=== PATIENT | female | born 1970 | race African-American/Black ===

== ENCOUNTER 2017-11-24 01:30 | Emergency (ER) | payer MEDICAID, OTHER ==
[~2017-11-24] VITALS: Ht 165.1 cm; Wt 132.9 kg
[2017-11-24] MEDS ORDERED: CARVEDILOL3.125 MG ORAL (01:54)
[2017-11-24] MEDS ORDERED: FUROSEMIDE20 M1 ORAL (01:54)
[2017-11-24] MEDS ORDERED: SPIRONOLACTONE25 MG ORAL (01:54)
[2017-11-24] MEDS ORDERED: FOLIC ACID1 MG ORAL (01:54)
[2017-11-24] MEDS ORDERED: DIGOXIN0.125 MG/2 ORAL (01:55)
[2017-11-24 02:00] VITALS: BP 160/79
[2017-11-24] MEDS ORDERED: ROBAXIN-750750 MG PO (03:41)
[2017-11-24] MEDS ORDERED: IBUPROFEN600 MG ORAL (03:41)
[2017-11-24 03:45] VITALS: BP 152/80
--- NOTE | 2017-11-24 03:51 | Emergency Room Report ---
History of Present Illness General Chief Complaint: Multiple Trauma/Fall Source: Patient Present Illness HPI 46YOF with low back pain and right ankle pain after accidental slip and fall on back in store yesterday. Denies hitting head, LOC, nausea/vomiting, blurry vision Has sharp pain to right ankle when walking Taking tylenol once with some improvement Denies lower leg weakness, incontinence Denies previous trauma to back, legs Allergies: Coded Allergies: AMOXICILLIN (Verified Allergy, Unknown, SWELLING, 01/06/09) Patient History Past Medical History: none Past Surgical History: none Pertinent Family History: none Last Menstrual Period: Nov Now: No Immunizations: UTD Reviewed Nursing Documentation: PMH: Agreed, PSxH: Agreed Nursing Documentation-PMH Past Medical History: No Stated History Hx Cardiac Problems: Yes - CHF Review of Systems All Other Systems: negative except mentioned in HPI Physical Exam Vital Signs Date Time Temp Pulse Resp B/P (MAP) Pulse Ox O2 Delivery O2 Flow Rate FiO2 11/24/17 01:43 97.9 80 16 160/79 98 Room Air Medical Decision Making Diagnostic Impression: Primary Impression: Back pain Qualified Codes: M54.5 - Low back pain Additional Impressions: Fall Qualified Codes: W19.XXXA - Unspecified fall, initial encounter Right ankle sprain Qualified Codes: S93.401A - Sprain of unspecified ligament of right ankle, initial encounter ER Course Xrays of right ankle and LS spine negative for acute fracture Advised RICE, Motrin/Robaxin Supportive tx PMD followup as needed ER course: Patient has remained stable during ED stay. Disposition: Patient is to be discharged to home. Prescriptions given are motrin, robaxin Patient is instructed to follow up with their primary care doctor within 5 days. Strict return precautions discussed with patient such as fever, chills, worsening/severe pain, nausea, vomiting, which may indicate severe illness. Patient verbalizes understanding and agrees with plan. Please note that this Emergency Department Report was dictated using [employer] greaser technology software, occasionally this can lead to erroneous entry secondary to interpretation by the dictation equipment Other X-Ray Diagnostic Results Other X-Ray Diagnostic Results #1: X-Ray ordered: Right ankle # of Views/Limited Vs Complete: 4 View Indication: Pain EP Interpretation: Yes Interpretation: no dislocation, no soft tissue swelling, no fractures Impression: No acute disease Electronically Signed by: Dr Eleazar Zamora MD Other X-Ray Diagnostic Results #2: X-Ray ordered: LS Spine limited # of Views/Limited Vs Complete: 3 View Indication: Pain EP Interpretation: Yes Interpretation: no dislocation, no soft tissue swelling, no fractures Impression: No acute disease Electronically Signed by: Dr Eleazar Zamora MD Last Vital Signs Date Time Temp Pulse Resp B/P (MAP) Pulse Ox O2 Delivery O2 Flow Rate FiO2 11/24/17 02:00 97.9 80 16 160/79 98 Room Air Status: improved Disposition: HOME, SELF-CARE Condition: Improved Scripts Methocarbamol* (ROBAXIN-750*) 750 Mg Tablet 750 MG PO TID for 7 Days, #30 TAB 0 Refills Prov: ELEAZAR ZAMORA M.D. 11/24/17 Ibuprofen* (MOTRIN*) 600 Mg Tablet 600 MG ORAL THREE TIMES A DAY for For Pain for 7 Days, #30 TAB 0 Refills Prov: ELEAZAR ZAMORA M.D. 11/24/17 Patient Instructions: Fall Prevention in the Home, [id number], Musculoskeletal Pain ELEAZAR ZAMORA M.D. Nov 24, 2017 03:51
[2017-11-24 03:53] VITALS: BP 152/80
--- NOTE | 2017-11-24 12:50 | Diagnostic Imaging Report ---
Indication: Pain Technique: 3 views of the right ankle Comparison: none Findings: There is soft tissue swelling over the lateral malleolus. No acute fractures. No dislocations. There are plantar and calcaneal spurs Impression: Lateral soft tissue swelling No acute bony trauma This agrees with the preliminary interpretation provided by the emergency room physician
--- NOTE | 2017-11-24 12:51 | Diagnostic Imaging Report ---
Indication: Pain Technique: 3 views of the lumbar spine Comparison: None Findings: Bony alignment is normal. Vertebral body heights are preserved. There is minimal degenerative disc narrowing and proliferative spondylosis at T11-12. The remainder of the spaces are preserved. The included extra spinal soft tissues are unremarkable Impression: No acute bony trauma Minimal lower thoracic degenerative change, as described This agrees with the preliminary interpretation provided by the emergency room physician
== END 2017-11-24 03:53 | disposition home or self-care (01) ==
LOC: EMR 02:13
DX: S93.401A Sprain of unspecified ligament of right ankle, initial encounter (principal); M54.5 Low back pain; W01.0XXA Fall on same level from slipping, tripping and stumbling without subsequent striking against object, initial encounter; Y92.89 Other specified places as the place of occurrence of the external cause; M47.814 Spondylosis without myelopathy or radiculopathy, thoracic region; Z88.0 Allergy status to penicillin
CPT/HCPCS: 72020; 99284

== ENCOUNTER 2018-03-01 22:31 | Emergency (ER) | payer OTHER ==
[~2018-03-01] VITALS: Ht 165.1 cm; Wt 129.7 kg
[~2018-03-01 22:31] MED LIST: CARVEDILOL3.125 MG ORAL; DIGOXIN0.125 MG/2 ORAL; FOLIC ACID1 MG ORAL; FUROSEMIDE20 M1 ORAL; IBUPROFEN600 MG ORAL; ROBAXIN-750750 MG PO; SPIRONOLACTONE25 MG ORAL
[2018-03-01 23:20] VITALS: BP 151/84
[2018-03-01] MEDS ORDERED: MECLIZINE HCL25 MG ORAL (23:22)
[2018-03-01] MEDS ORDERED: ZYRTEC10 MG ORAL (23:22)
[2018-03-01 23:40] VITALS: BP 0/0
--- NOTE | 2018-03-02 02:41 | Emergency Room Report ---
History of Present Illness General Chief Complaint: Dizziness Source: Patient Present Illness HPI Patient present with complaints of acute dizziness She feels that she might have an infection in the right ear However denies any pain Patient reports that earlier as she had tilted her head upwards she had acute dizziness Denies any focal weakness denies any chest pain or shortness of breath denies any back or flank pain Denies any fall or trauma Allergies: Coded Allergies: AMOXICILLIN (Verified Allergy, Unknown, SWELLING, 01/06/09) PENICILLINS (Verified Allergy, Unknown, 03/01/18) Patient History Past Medical History: see triage record Pertinent Family History: none Last Menstrual Period: 01/2018 Now: No Reviewed Nursing Documentation: PMH: Agreed; PSxH: Agreed Nursing Documentation-PMH Past Medical History: No History, Except For Hx Cardiac Problems: Yes - CHF Hx Hypertension: Yes Review of Systems All Other Systems: negative except mentioned in HPI Physical Exam Vital Signs Date Time Temp Pulse Resp B/P (MAP) Pulse Ox O2 Delivery O2 Flow Rate FiO2 03/01/18 23:02 98.2 77 16 151/84 97 Room Air 98.2 Sp02 EP Interpretation: reviewed, normal General Appearance: well appearing, no apparent distress Head: normocephalic, atraumatic Eyes: bilateral eye PERRL, bilateral eye EOMI ENT: hearing grossly normal, normal pharynx, uvula midline, other - Bulging in the right TM, no obvious erythema Neck: full range of motion, supple, no meningismus, no bony tend Respiratory: lungs clear, normal breath sounds, no rhonchi, no respiratory distress, no retraction, no accessory muscle use Cardiovascular #1: normal peripheral pulses, regular rate, rhythm, no edema, no gallop, no JVD, no murmur Gastrointestinal: normal bowel sounds, non tender, soft, no mass, no organomegaly, non-distended, no guarding, no hernia, no pulsatile mass, no rebound Genitourinary: no CVA tenderness Musculoskeletal: normal inspection Neurologic: oriented x3, responsive, 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 nml as tested, motor strength/ tone normal, sensory intact Psychiatric: mood/affect normal Skin: warm/dry, palpation normal, pallor Lymphatic: normal inspection, no adenopathy Medical Decision Making Diagnostic Impression: Primary Impression: Dizziness ER Course Patient appears mildly pale She does not feel that her skin color is different than usual Patient has also had anemia in the past Patient reports that she just had a full set of blood work performed by her primary physician she is also supposed to be on iron pills however reports that they make her constipated given the fluid behind the right ear Likely contributing to her dizziness episodes Patient is treated for that however requires close follow-up for further evaluation of her hemoglobin and further care Last Vital Signs Date Time Temp Pulse Resp B/P (MAP) Pulse Ox O2 Delivery O2 Flow Rate FiO2 03/01/18 23:02 98.2 77 16 151/84 97 Room Air 98.2 Status: unchanged Disposition: HOME, SELF-CARE Condition: Stable Scripts Cetirizine Hcl* (ZYRTEC*) 10 Mg Tablet 10 MG ORAL DAILY, #30 TAB 0 Refills Prov: Ericka Horton DO 03/01/18 Meclizine Hcl* (MECLIZINE*) 25 Mg Tablet 25 MG ORAL THREE TIMES A DAY, #21 TAB Prov: Ericka Horton DO 03/01/18 Referrals: [facility] (PCP) Patient Instructions: Dizziness Additional Instructions: Patient is provided with the discharge instructions notified to follow up with primary doctor in the next 2-3 days otherwise return to the er with any worsening symptoms. Please note that this report is being documented using [employer] technology. This can lead to erroneous entry secondary to incorrect interpretation by the dictating instrument. Ericka Horton DO March 02, 2018 02:41
== END 2018-03-01 23:40 | disposition home or self-care (01) ==
LOC: EMR 22:55
DX: R42 Dizziness and giddiness (principal); I11.0 Hypertensive heart disease with heart failure; I50.9 Heart failure, unspecified; Z88.0 Allergy status to penicillin; Z88.1 Allergy status to other antibiotic agents
CPT/HCPCS: 99284

== ENCOUNTER 2018-12-30 00:36 | Emergency (ER) | payer OTHER ==
[~2018-12-30] VITALS: Ht 165.1 cm; Wt 127.0 kg
[~2018-12-30 00:36] MED LIST changes: +MECLIZINE HCL25 MG ORAL; +ZYRTEC10 MG ORAL
[2018-12-30 00:49] VITALS: BP 127/83
--- NOTE | 2018-12-30 00:51 | NUR ---
ED Nurse Note: Patient walked into ED c/o swollen throat accompanied by mucus coming out of right eye. denies any SOB, just congestion and cough. pt denies any pain.
[2018-12-30] MEDS ORDERED: GENTAK5 ML LEFT EYE (01:00)
[2018-12-30] MEDS ORDERED: GUAIFENESIN DM118 M1 ORAL (01:13)
[2018-12-30 02:05] VITALS: BP 123/81
--- NOTE | 2018-12-30 02:07 | NUR ---
ER DISCHARGE NOTE: Patient is cleared to be discharged per ERMD, pt is aox4, on room air, with stable vital signs. pt was given dc and prescription instructions, pt was able to verbalize understanding, pt id band removed without complications. pt is able to ambulate with steady gait. pt took all belongings.
== END 2018-12-30 02:07 | disposition home or self-care (01) ==
LOC: EMR 00:57
DX: R07.0 Pain in throat (principal); H57.9 Unspecified disorder of eye and adnexa
CPT/HCPCS: 99282